=== PATIENT | male | born 1990 | race African-American/Black ===

== ENCOUNTER 2017-11-01 10:47 | Outpatient (CLI) | payer SELFPAY ==
[2017-11-01 12:37] LABS: #Basophils 0.1 thou/uL (0.0-0.2); #Eosinphils 0.2 thou/uL (0.0-0.7); #Lymphocytes 1.6 thou/uL (1.20-3.40); #Monocytes 0.5 thou/uL (0.11-0.59); #Neutrophils 3.5 thou/uL (1.40-6.50); %Basophils 0.9 % (0.0-1.0); %Eosinophils 2.8 % (0.0-10.0); %Lymphocytes 28.1 % (21.0-51.0); %Monocytes 8.7 % (0.0-10.0); %Neutrophils 59.5 % (42.0-75.0); Anisocytosis SLIGHT = 6-15 cells (100X) (0-5/hpf); Eosinophils 3 % (0-10); Hemoglobin 10.7 g/dL (14.0-18.0); Large Platelets SLIGHT; Lymphocytes 24 % (21-51); MDiff Complete? YES; Mean Corpuscular HGB CONC 31.2 g/dL (32.0-36.0); Mean Corpuscular Hemoglobin 32.5 pg (27.0-31.0); Mean Platelet Volume 12.4 fL (7.4-10.4); Monocytes 10 % (0-10); Neutrophil 62 % (42-75); Platelet Count 52 thou/uL (130-400); RBC Distribution Width 12.4 % (11.5-14.5); Red Blood Cell (RBC) Count 3.28 mill/uL (4.70-6.10); White Blood Cell (WBC) Count 5.8 thou/uL (4.8-10.8)
== END 2017-11-01 10:48 | disposition home or self-care (01) ==
LOC: LABBT 10:47
PROVIDERS: ATTEND Orthopaedic Surgery Hand Surgery
DX: Z01.812 Encounter for preprocedural laboratory examination (principal); D17.9 Benign lipomatous neoplasm, unspecified
CPT/HCPCS: 85025; 85060; 85652

== ENCOUNTER 2017-11-06 09:24 | Day surgery (SDC) | payer BC, OTHER ==
[2017-11-01 11:16] VITALS: BMI 2869.4
[2017-11-06] MEDS ORDERED: CEFAZOLIN/Water 2 GM/20 ML SYRINGE ONE (09:55)
[2017-11-06] MEDS ORDERED: Bupivacaine PF 0.5% 30 ML VIAL ONE (14:05)
[2017-11-06] MEDS ORDERED: Bacitracin Zinc Ointment 30 gm TUBE ONE (14:05)
[2017-11-06] MEDS ORDERED: Betamet Acet/Betamet Na Ph 30 MG/5 ML VIAL ONE (14:05)
[2017-11-06] MEDS ORDERED: Fentanyl 100 MCG/2 ML VIAL ONE ×2 (14:10→15:25)
[2017-11-06] MEDS ORDERED: Ondansetron HCl/PF 4 MG/2 ML Vial ONE (15:45)
[2017-11-06] MEDS ORDERED: Dexamethasone 20 MG/5 ML VIAL ONE (15:45)
[2017-11-06] MEDS ORDERED: Metoclopramide HCl 10 MG/2 ML VIAL ONE (15:45)
[2017-11-06] MEDS ORDERED: Ketorolac Tromethamine 30 MG/ML VIAL ONE ×2 (15:45→17:03)
[2017-11-06] MEDS ORDERED: diphenhydrAMINE 50 MG/ML VIAL ONE (15:45)
[2017-11-06] MEDS ORDERED: Lidocaine 1% PF 5 ML VIAL ONE (15:45)
[2017-11-06] MEDS ORDERED: Propofol 200 MG/20 ML VIAL ONE (15:45)
--- NOTE | 2017-11-06 15:49 | RAD ---
RIGHT ELBOW INTRAOPERATIVE FLUOROSCOPY: History: Foreign body removal. FINDINGS/IMPRESSION: Intraoperative fluoroscopy was provided for foreign body removal as performed by Dr. Johnson. Two sp ot fluoroscopic images show small metallic fragments overlying the distal aspect of a long bone in th e adjacent soft tissues. Lap sponge and skin defect are noted at the peripheral margin. Fluoro time equals 2 seconds. POS: [facility]
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
== END 2017-11-06 18:15 | disposition home or self-care (01) ==
LOC: SDC 09:24
PROVIDERS: ATTEND Orthopaedic Surgery Hand Surgery
PROC: 01N60ZZ Release Radial Nerve, Open Approach (ICD-10-PCS; principal; 2017-11-06)
PROC: 0JBF0ZZ Excision of Left Upper Arm Subcutaneous Tissue and Fascia, Open Approach (ICD-10-PCS; principal; 2017-11-06)
PROC: 0HBGXZX Excision of Left Hand Skin, External Approach, Diagnostic (ICD-10-PCS; principal; 2017-11-06)
PROC: 01N40ZZ Release Ulnar Nerve, Open Approach (ICD-10-PCS; principal; 2017-11-06)
PROC: 0JCF0ZZ Extirpation of Matter from Left Upper Arm Subcutaneous Tissue and Fascia, Open Approach (ICD-10-PCS; principal; 2017-11-06)
DX: S41.142A Puncture wound with foreign body of left upper arm, initial encounter (principal); D17.9 Benign lipomatous neoplasm, unspecified; D18.01 Hemangioma of skin and subcutaneous tissue; D69.3 Immune thrombocytopenic purpura
CPT/HCPCS: 76000; 87070; 87077; 87186; 87205; 88300; 88305; 96372; J0131; J0702; J1100; J1200; J1885; J2001; J2405; J2704; J2765; J3010; S0020